=== PATIENT | female | born 1945 | race Two or more races ===

== ENCOUNTER 2017-08-20 18:07 | Emergency (ER) | payer MEDICARE ==
[2017-08-20] MEDS ORDERED: NACL 0.9% 500 ML 500 ML IV ONE (18:30)
[2017-08-20 19:12] LABS: Bilirubin,Urine NEG (Negative); Blood,Urine NEG (Negative); Color,Urine Straw (Yellow); Mucus,Urine FEW /HPF; Protein,Urine <15 mg/dL mg/dL (Negative); Urobilinogen,Urine < 2.0 mg/dL (<2.0)
[2017-08-20 19:23] LABS: Basophils % (Auto) 0.3 % (0.0-1.8); Eosinophils # (Auto) 0.1 K/mm3 (0.0-0.4); Eosinophils % (Auto) 0.8 % (0.0-4.3); Hematocrit 37.4 % (30.3-42.9); Hemoglobin 12.8 gm/dl (10.1-14.3); Lymphocytes # (Auto) 1.9 K/mm3 (1.2-5.4); Mean Corpuscular HGB Conc 34 % (30-34); Mean Corpuscular Hemoglobin 31 pg (28-32); Mean Corpuscular Volume 90 fl (79-97); Monocytes % (Auto) 9.8 % (0.0-7.3); Platelet Count 257 K/mm3 (140-440); Red Blood Count 4.14 M/mm3 (3.65-5.03); Red Cell Distribution Width 12.3 % (13.2-15.2)
[2017-08-20 19:38] LABS: INR 0.86 (0.87-1.13)
[2017-08-20 19:59] LABS: Alanine Aminotransferase 66 units/L (7-56); Albumin 4.1 g/dL (3.9-5); BUN/Creatinine Ratio 29; Blood Urea Nitrogen 20 mg/dL (7-17); Calcium 9.3 mg/dL (8.4-10.2); Hemolysis Index 1
--- NOTE | 2017-08-20 20:08 | XRay Report ---
FINAL REPORT EXAM: XR CHEST 1V AP HISTORY: possible Sepsis TECHNIQUE: Single, portable chest x-ray. PRIORS: None. FINDINGS: Cardiac and mediastinal silhouette within normal limits. Rounded opacity in the midline retrocardiac space may represent moderate hiatal hernia. Lungs are normally expanded, without significant vascular congestion. Probable mild bibasilar atelectasis versus scarring. No focal consolidation or apparent pneumothorax. Bony thorax grossly unremarkable. IMPRESSION: 1. Possible hiatal hernia, but nonspecific. Followup may be warranted. 2. No acute consolidation.
[2017-08-20] MEDS ORDERED: NACL 0.9% 1000 ML 1,000 ML IV ONE (20:34)
[2017-08-20] MEDS ORDERED: TORADOL IV ONE (20:34)
[2017-08-20] MEDS ORDERED: ZITHROMAX 500 MG in NACL 0.9% 250ML 250 ML IV ONE (20:35)
--- NOTE | 2017-08-20 22:25 | Emergency Department Report ---
ED Fever HPI - General Chief Complaint: Fever Stated Complaint: FLU LIKE SYMPTOMS Time Seen by Provider: 08/20/17 20:30 - History of Present Illness Initial Comments: Patient is a 72-year-old female who is complaining of one month of cough congestion sore throat. Patient states that it hurts to swallow she's had some decreased appetite secondary to sore throat. Patient also has a cough is nonproductive. Her granddaughter states that she had a fever earlier today. Patient denies any nausea vomiting headache neck stiffness abdominal pain diarrhea at this time. ED Review of Systems ROS: Stated complaint: FLU LIKE SYMPTOMS Other details as noted in HPI Comment: All other systems reviewed and negative ED Past Medical Hx - Past Medical History Hx Hypertension: Yes Additional medical history: HIGH CHOLESTEROL - Social History Smoking Status: Never Smoker Substance Use Type: None - Medications Home Medications: Home Medications Medication Instructions Recorded Confirmed Last Taken Type Azithromycin [Zithromax Z-MARTÍN] 250 mg PO DAILY #6 tablet 08/20/17 Unknown Rx HYDROcodone/APAP 5-325 [[place] 1 each PO Q4HR PRN #12 tablet 08/20/17 Unknown Rx 5/325] predniSONE [Deltasone] 10 mg PO QDAY #5 tab 08/20/17 Unknown Rx ED Physical Exam - General Limitations: No Limitations General appearance: alert, in no apparent distress - Head Head exam: Present: atraumatic, normocephalic - Eye Eye exam: Present: normal appearance - ENT ENT exam: Present: mucous membranes moist. Absent: normal orophraynx (mild diffuse bilateral tonsillar erythema) - Neck Neck exam: Present: normal inspection - Respiratory Respiratory exam: Present: normal lung sounds bilaterally. Absent: respiratory distress - Cardiovascular Cardiovascular Exam: Present: regular rate, normal rhythm. Absent: systolic murmur, diastolic murmur, rubs, gallop - GI/Abdominal GI/Abdominal exam: Present: soft, normal bowel sounds - Extremities Exam Extremities exam: Present: normal inspection - Back Exam Back exam: Present: normal inspection - Neurological Exam Neurological exam: Present: alert, oriented X3 - Psychiatric Psychiatric exam: Present: normal affect, normal mood - Skin Skin exam: Present: warm, dry, intact, normal color. Absent: rash ED Course Vital Signs 08/20/17 08/20/17 08/20/17 18:24 20:45 20:58 Temperature 99.7 F H 99.4 F Pulse Rate 121 H 105 H Respiratory 20 19 20 Rate Blood Pressure 160/94 Blood Pressure 155/91 [Left] O2 Sat by Pulse 98 96 96 Oximetry ED Medical Decision Making - Lab Data Result diagrams: 08/20/17 19:07 08/20/17 19:07 - EKG Data -: EKG Interpreted by Me - EKG Data Interpretation: other (EKG shows sinus tachycardia rate of 111 normal axis normal intervals no ST segment elevation or depression. Interpretation is 645) - Radiology Data Radiology results: report reviewed (chest x-ray is within normal limits) - Medical Decision Making Patient symptoms most likely started out as viral however with the length of her patient's illness and will place the patient also antibiotics. Patient is not meeting sepsis criteria per labs. Patient is slightly prerenal secondary to decreased by mouth intake. Patient was given IV fluids and the patient be discharged home. Patient is not Upper Sorbian speaking her history of physical as interpreted by her granddaughter who is fluent in Upper Sorbian. Critical care attestation.: If time is entered above; I have spent that time in minutes in the direct care of this critically ill patient, excluding procedure time. ED Disposition Clinical Impression: Dehydration Pharyngitis Qualifiers: Pharyngitis/tonsillitis etiology: unspecified etiology Qualified Code(s): J02.9 - Acute pharyngitis, unspecified Disposition: DC-01 TO HOME OR SELFCARE Is pt being admited?: No Does the pt Need Aspirin: No Condition: Stable Instructions: Pharyngitis (ED) Referrals: PRIMARY CAREMD [Primary Care Provider] - 3-5 Days
[2017-08-20 22:34] VITALS: BP 126/75
== END 2017-08-20 22:43 | disposition home or self-care (01) ==
LOC: ED 18:07
DX: E86.0 Dehydration (principal); J02.9 Acute pharyngitis, unspecified; E78.00 Pure hypercholesterolemia, unspecified
CPT/HCPCS: 36415; 71045; 80053; 81001; 82140; 82805; 85025; 85610; 87040; 87086; 93005; 93010; 96365; 96375; 99284; J0456; J1885; J7030; J7050

== ENCOUNTER 2017-12-10 15:46 | Inpatient (IN) | payer MEDICARE ==
[2017-12-10 17:24] LABS: Basophils % (Auto) 0.3 % (0.0-1.8); Eosinophils # (Auto) 0.1 K/mm3 (0.0-0.4); Hematocrit 37.9 % (30.3-42.9); Hemoglobin 13.2 gm/dl (10.1-14.3); Lymphocytes # (Auto) 1.8 K/mm3 (1.2-5.4); Lymphocytes % (Auto) 33.6 % (13.4-35.0); Mean Corpuscular HGB Conc 35 % (30-34); Mean Corpuscular Hemoglobin 31 pg (28-32); Mean Corpuscular Volume 89 fl (79-97); Monocytes # (Auto) 0.3 K/mm3 (0.0-0.8); Platelet Count 247 K/mm3 (140-440); Red Blood Count 4.24 M/mm3 (3.65-5.03); Red Cell Distribution Width 15.7 % (13.2-15.2)
[2017-12-10 17:42] LABS: BUN/Creatinine Ratio 14; Blood Urea Nitrogen 11 mg/dL (7-17); Calcium 8.9 mg/dL (8.4-10.2); Hemolysis Index 20
--- NOTE | 2017-12-10 19:05 | XRay Report ---
FINAL REPORT EXAM: XR CHEST ROUTINE 2V HISTORY: Shortness of breath TECHNIQUE: Frontal and lateral chest x-ray. PRIORS: 03 December 2017. FINDINGS: Cardiomegaly stable. Lungs are normally expanded, without significant vascular congestion. No focal consolidation, apparent pleural effusion or pneumothorax. Bony thorax grossly unremarkable. IMPRESSION: 1. Stable examination. No acute findings.
[2017-12-10] MEDS ORDERED: MORPHINE IV ONE (20:35)
[2017-12-10] MEDS ORDERED: ZOFRAN IV ONE (20:35)
[2017-12-10] MEDS ORDERED: NACL 0.9% 1000 ML 1,000 ML IV ONE (20:38)
--- NOTE | 2017-12-10 20:47 | Emergency Department Report ---
ED General Adult HPI - General Chief complaint: Chest Pain Stated complaint: HIGH BP Time Seen by Provider: 12/10/17 19:43 Source: patient, family Mode of arrival: Wheelchair Limitations: Language Barrier - History of Present Illness Initial comments: Mrs. Maxwell is 72 yo female with hx of HTN and headache who presents with 10 days of frontal headache, muscle cramps, generalized weakness. She also has nondescript chest pain and dyspnea. She has taken Fioricet for headache without relief. Family members provided Greenlandic interpretation. Zev could not recall use of diuretic although previously documented in EMR. Has had poor appetite since recent discharge from this hospital 5 days ago on 2017. PCP Dr. Yesenia Patterson -: days(s) (10) Location: head, chest Severity scale (0 -10): 10 Quality: dull Consistency: constant Improves with: none Worsens with: none Associated Symptoms: loss of appetite, malaise - Related Data Previous Rx's Medication Instructions Recorded Last Taken Type Aspirin EC [Aspirin Enteric Coated 81 mg PO QDAY #30 tablet 12/05/17 Unknown Rx TAB] Butalb/Acetamin/Caff 50-325-40 1 tab PO Q4H PRN #10 tablet 12/05/17 Unknown Rx [Fioricet] Carvedilol [Coreg] 6.25 mg PO BID #60 tablet 12/05/17 Unknown Rx Zolpidem [Ambien] 5 mg PO QHS PRN #10 tablet 12/05/17 Unknown Rx amLODIPine [Norvasc] 10 mg PO QDAY #30 tablet 12/05/17 Unknown Rx Allergies Allergy/AdvReac Type Severity Reaction Status Date / Time No Known Allergies Allergy Verified 08/20/17 20:32 ED Review of Systems ROS: Stated complaint: HIGH BP Other details as noted in HPI Comment: All other systems reviewed and negative Constitutional: malaise Cardiovascular: chest pain Gastrointestinal: nausea. denies: abdominal pain ED Past Medical Hx - Past Medical History Previous Medical History?: Yes Hx Hypertension: Yes Hx Headaches / Migraines: Yes Hx Kidney Stones: Yes Additional medical history: HIGH CHOLESTEROL - Social History Smoking Status: Never Smoker Substance Use Type: None - Medications Home Medications: Home Medications Medication Instructions Recorded Confirmed Last Taken Type Aspirin EC [Aspirin Enteric Coated 81 mg PO QDAY #30 tablet 12/05/17 Unknown Rx TAB] Butalb/Acetamin/Caff 50-325-40 1 tab PO Q4H PRN #10 tablet 12/05/17 Unknown Rx [Fioricet] Carvedilol [Coreg] 6.25 mg PO BID #60 tablet 12/05/17 Unknown Rx Zolpidem [Ambien] 5 mg PO QHS PRN #10 tablet 12/05/17 Unknown Rx amLODIPine [Norvasc] 10 mg PO QDAY #30 tablet 12/05/17 Unknown Rx ED Physical Exam - General Limitations: Language Barrier General appearance: alert, in no apparent distress, other (appears in pain) - Head Head exam: Present: atraumatic, normocephalic - Eye Eye exam: Present: normal appearance, PERRL - ENT ENT exam: Present: mucous membranes dry - Neck Neck exam: Present: normal inspection. Absent: tenderness, meningismus - Respiratory Respiratory exam: Present: normal lung sounds bilaterally. Absent: respiratory distress, wheezes, rales, rhonchi - Cardiovascular Cardiovascular Exam: Present: regular rate, normal rhythm, normal heart sounds. Absent: bradycardia, tachycardia, systolic murmur, diastolic murmur, rubs, gallop - GI/Abdominal GI/Abdominal exam: Present: soft, normal bowel sounds. Absent: distended, guarding, rebound - Extremities Exam Extremities exam: Present: normal inspection - Back Exam Back exam: Present: normal inspection - Neurological Exam Neurological exam: Present: alert, oriented X3, CN II-XII intact. Absent: motor sensory deficit - Psychiatric Psychiatric exam: Present: normal affect, normal mood - Skin Skin exam: Present: warm, dry, intact, normal color. Absent: rash ED Course Vital Signs 12/10/17 12/10/17 12/10/17 16:50 18:33 18:45 Temperature 97.4 F L Pulse Rate 66 68 64 Respiratory 17 15 12 Rate Blood Pressure 187/95 O2 Sat by Pulse 100 98 96 Oximetry 12/10/17 12/10/17 12/10/17 19:01 19:15 19:31 Temperature Pulse Rate 66 68 68 Respiratory 13 12 11 L Rate Blood Pressure O2 Sat by Pulse 98 99 99 Oximetry 12/10/17 12/10/17 12/10/17 19:45 20:01 20:15 Temperature Pulse Rate 73 74 75 Respiratory 14 15 12 Rate Blood Pressure O2 Sat by Pulse 99 99 98 Oximetry 12/10/17 12/10/17 12/10/17 20:31 20:45 21:00 Temperature Pulse Rate 74 71 Respiratory 13 13 Rate Blood Pressure 216/116 O2 Sat by Pulse 99 99 97 Oximetry 12/10/17 21:12 Temperature Pulse Rate 68 Respiratory Rate Blood Pressure 216/116 O2 Sat by Pulse Oximetry ED Medical Decision Making - Lab Data Result diagrams: 12/10/17 17:06 12/10/17 17:06 - EKG Data When compared to previous EKG there are: no significant change Interpretation: no acute changes 12/10/17 20:47 Time obtained 1700 reate 60 bpm nl axis nl intervals no ST elevation 12/10/17 21:36 Second EKG 2125 NSR rate 70 bpm nl axis prolonged QT no stelevation - Medical Decision Making 1. hyponatremia hypovolemic, due to HCTZ use according to previous EMR, patient does not have HCTZ with meds on her person, IVF NS initated in ED, hyponatremia would explain headache, malaise and muscle cramps 2. Chest pain, dyspnea will need cardiac evaluation unclear etiology PE not likely without tachycardia, Admitted to hospitalist service Critical care attestation.: If time is entered above; I have spent that time in minutes in the direct care of this critically ill patient, excluding procedure time. ED Disposition Clinical Impression: Acute hyponatremia, Headache, SOB (shortness of breath), Myalgia, Chest pain Disposition: OP ADMIT IP TO THIS HOSP Is pt being admited?: Yes Does the pt Need Aspirin: No Condition: Stable Instructions: Chest Pain (ED) Referrals: PRIMARY CARE, [Primary Care Provider] - 3-5 Days
[2017-12-10] MEDS ORDERED: APRESOLINE IV ONE (20:54)
[2017-12-10] MEDS ORDERED: ZOFRAN IV PRN (22:08)
[2017-12-10] MEDS ORDERED: TYLENOL PO PRN (22:08)
[2017-12-10] MEDS ORDERED: PERCOCET 5/325 PO PRN (22:08)
[2017-12-10] MEDS ORDERED: SODIUM CHLORIDE FLUSH SYRINGE 10 ML IV PRN (22:08)
--- NOTE | 2017-12-10 22:10 | History and Physical Report ---
History of Present Illness Date of examination: 12/10/17 History of present illness: 72-year-old female with history of hypertension, migraines, emergency room with complaints of chest pain located in the epigastric area. The family is at bedside translating. She is unable to describe the chest pain, intermittent, unclear along and last for, no radiation. Family at bedside stated that the patient is very weak, achy, nauseous and has a headache. Review of system is difficult to obtain. On the last admission the patient was on a diuretic. Daughter at bedside check all the medicine from the back and there was no diuretic and the patient is taking currently PAST MEDICAL HISTORY: hypertension, migraines PAST SURGICAL HISTORY: None SOCIAL HISTORY: No alcohol, no drugs, tobacco FAMILY HISTORY: Hypertension Medications and Allergies Allergies Allergy/AdvReac Type Severity Reaction Status Date / Time No Known Allergies Allergy Verified 08/20/17 20:32 Home Medications Medication Instructions Recorded Confirmed Last Taken Type Aspirin EC [Aspirin Enteric Coated 81 mg PO QDAY #30 tablet 12/05/17 12/11/17 Unknown Rx TAB] Butalb/Acetamin/Caff 50-325-40 1 tab PO Q4H PRN #10 tablet 12/05/17 12/11/17 09:00 Rx [Fioricet] Carvedilol [Coreg] 6.25 mg PO BID #60 tablet 12/05/17 12/11/17 12/09/17 21:00 Rx Zolpidem [Ambien] 5 mg PO QHS PRN #10 tablet 12/05/17 12/11/17 12/09/17 21:00 Rx amLODIPine [Norvasc] 10 mg PO QDAY #30 tablet 12/05/17 12/11/17 12/09/17 09:00 Rx Venlafaxine Xr 37.5 mg PO DAILY 12/11/17 12/11/17 12/09/17 History Active Meds: Active Medications Acetaminophen (Tylenol) 650 mg PO Q4H PRN PRN Reason: Pain MILD(1-3)/Fever >100.5/CORONADO Enoxaparin Sodium (Lovenox) 30 mg SUB-Q QDAY ZURI Sodium Chloride (Nacl 0.9% 1000 Ml) 1,000 mls @ 250 mls/hr IV BOLUS ONE Stop: 12/11/17 00:37 Last Admin: 12/10/17 21:12 Dose: 250 mls/hr Sodium Chloride (Nacl 0.9% 1000 Ml) 1,000 mls @ 75 mls/hr IV DIRECT ZURI Ondansetron HCl (Zofran) 4 mg IV Q4H PRN PRN Reason: Nausea And Vomiting Oxycodone/Acetaminophen (Percocet 5/325) 1 tab PO Q6H PRN PRN Reason: Pain, Moderate (4-6) Sodium Chloride (Sodium Chloride Flush Syringe 10 Ml) 10 ml IV BID ZURI Sodium Chloride (Sodium Chloride Flush Syringe 10 Ml) 10 ml IV PRN PRN PRN Reason: LINE FLUSH Exam - Physical Exam Narrative exam: Gen. appearance: Patient lying in bed, no apparent distress HEENT: Normocephalic, atraumatic, pupils equally round and reactive to light, extraocular movement intact, and no sclericterus,. No JVD or thyromegaly or nodule,neck supple, no carotid bruit ,mucous membranes moist, no exudate or erythema Heart: S1, S2, regular rate and rhythm Lungs: Clear bilaterally, breathing comfortable Abdomen: Positive bowel sounds, non-tender, nondistended, no organomegaly Extremity:no edema cyanosis, clubbing Skin: no rash, dry, warm Neuro: Difficult to assess - Constitutional Vitals: Temp Pulse Resp BP Pulse Ox 97.4 F L 68 13 162/87 97 12/10/17 16:50 12/10/17 21:12 12/10/17 20:45 12/10/17 21:45 12/10/17 21:45 Results - Labs CBC & Chem 7: 12/10/17 17:06 12/10/17 22:48 Labs: Abnormal lab results 12/10/17 12/10/17 12/10/17 Range/Units 17:06 17:06 19:04 MCHC 35 H (30-34) % RDW 15.7 H (13.2-15.2) % Sodium 115 L* (137-145) mmol/L Chloride 79.6 L (98-107) mmol/L Glucose 137 H (65-100) mg/dL Total Creatine Kinase 1195 H (30-135) units/L - Imaging and Cardiology EKG: image reviewed Chest x-ray: report reviewed Assessment and Plan Assessment Hyponatremia likely secondary to diuretic Chest pain Headache UTI Hypertension, uncontrolled Plan Admit to medicine Start IV fluid, monitor sodium, check urine electrolytes, consult renal Check cardiac enzymes, stress test check CT head, start IV rocephin Hydralazine as needed for blood pressure control DVT prophalaxis
[2017-12-10 22:58] LABS: Bacteria,Urine 1+ /HPF (Negative); Bilirubin,Urine NEG (Negative); Blood,Urine NEG (Negative); Color,Urine Straw (Yellow); Hyaline Casts,Urine 1 /LPF; Protein,Urine <15 mg/dL mg/dL (Negative); Urobilinogen,Urine < 2.0 mg/dL (<2.0)
[2017-12-10] MEDS ORDERED: APRESOLINE IV PRN (23:22)
--- NOTE | 2017-12-10 23:27 | Cat Scan Report ---
FINAL REPORT PROCEDURE: CT HEAD/BRAIN WO CON TECHNIQUE: Computerized tomography of the head was performed without contrast material. HISTORY: CORONADO COMPARISON: 12/03/2017 FINDINGS: Skull and scalp: Normal. Paranasal sinuses: Normal. Ventricles and subarachnoid spaces: Normal. Cerebrum: There is no evidence of acute intracranial hemorrhage, hematoma infarction. Low density in the left frontal periventricular region most consistent with small vessel ischemic change. There has been no change since prior exam.. Cerebellum and brainstem: No evidence of hemorrhage, acute infarction or mass. Vasculature: Normal. Comments: None. IMPRESSION: There is no evidence of an acute intracranial process.
[2017-12-10 23:29] LABS: BUN/Creatinine Ratio 13; Blood Urea Nitrogen 9 mg/dL (7-17); Calcium 7.9 mg/dL (8.4-10.2); Hemolysis Index 9
[2017-12-11] MEDS: ROCEPHIN/NS 1 GM/50 ML 1 GM/50 ML BAG IV SCH (00:31)
[2017-12-11] MEDS: NACL 0.9% 1000 ML 1,000 ML IV SCH (00:31)
[2017-12-11 02:21] LABS: BUN/Creatinine Ratio 15; Blood Urea Nitrogen 9 mg/dL (7-17); Calcium 7.9 mg/dL (8.4-10.2); Hemolysis Index 104
[2017-12-11 05:46] LABS: Creatinine,Urine 29.3 mg/dL (0.1-20.0)
[2017-12-11 06:27] LABS: Basophils % (Auto) 0.3 % (0.0-1.8); Eosinophils % (Auto) 0.4 % (0.0-4.3); Hematocrit 35.9 % (30.3-42.9); Hemoglobin 12.6 gm/dl (10.1-14.3); Lymphocytes % (Auto) 32.9 % (13.4-35.0); Mean Corpuscular HGB Conc 35 % (30-34); Mean Corpuscular Hemoglobin 31 pg (28-32); Mean Corpuscular Volume 89 fl (79-97); Monocytes # (Auto) 0.4 K/mm3 (0.0-0.8); Monocytes % (Auto) 6.3 % (0.0-7.3); Platelet Count 228 K/mm3 (140-440); Red Blood Count 4.04 M/mm3 (3.65-5.03); Red Cell Distribution Width 15.6 % (13.2-15.2)
[2017-12-11 06:46] LABS: BUN/Creatinine Ratio 11; Blood Urea Nitrogen 9 mg/dL (7-17); Calcium 8.1 mg/dL (8.4-10.2); Hemolysis Index 8
[2017-12-11] MEDS ORDERED: LEXISCAN IV ONE ×2 (09:19)
[2017-12-11] MEDS ORDERED: LOVENOX SUB-Q SCH (10:00)
[2017-12-11] MEDS: SODIUM CHLORIDE FLUSH SYRINGE 10 ML IV SCH ×2 (10:48→21:34)
[2017-12-11 10:52] LABS: BUN/Creatinine Ratio 10; Blood Urea Nitrogen 8 mg/dL (7-17); Hemolysis Index 7
--- NOTE | 2017-12-11 13:13 | Consultation ---
History of Present Illness - Reason for Consult Consult date: 12/11/17 hyponatremia - History of Present Illness The patient is a 72 YO female with history significant for Poorly controlled Hypertension and Migraine who presented to the emergency room with complaints of pain in the epigastric area. Her grand daughter at the bedside helped on translating. She is very vague about the pain. She ahs been nauseated with decreased PO intake for the past 3 days. eview of system is difficult to obtain. She was admitted last week for uncontrolled HTN and discharged home on 12/05/2017. She is not taking her meds as she feels its too strong. She is not sure if she taking any diuretic. Her Sodium level was 115 on admission. Past History Past Medical History: hypertension, migraines Medications and Allergies Allergies Allergy/AdvReac Type Severity Reaction Status Date / Time No Known Allergies Allergy Verified 08/20/17 20:32 Home Medications Medication Instructions Recorded Confirmed Last Taken Type Aspirin EC [Aspirin Enteric Coated 81 mg PO QDAY #30 tablet 12/05/17 12/11/17 Unknown Rx TAB] Butalb/Acetamin/Caff 50-325-40 1 tab PO Q4H PRN #10 tablet 12/05/17 12/11/17 09:00 Rx [Fioricet] Carvedilol [Coreg] 6.25 mg PO BID #60 tablet 12/05/17 12/11/17 12/09/17 21:00 Rx Zolpidem [Ambien] 5 mg PO QHS PRN #10 tablet 12/05/17 12/11/17 12/09/17 21:00 Rx amLODIPine [Norvasc] 10 mg PO QDAY #30 tablet 12/05/17 12/11/17 12/09/17 09:00 Rx Venlafaxine Xr 37.5 mg PO DAILY 12/11/17 12/11/17 12/09/17 History Active Meds: Active Medications Acetaminophen (Tylenol) 650 mg PO Q4H PRN PRN Reason: Pain MILD(1-3)/Fever >100.5/CORONADO Enoxaparin Sodium (Lovenox) 40 mg SUB-Q QDAY@1000 ZURI Hydralazine HCl (Apresoline) 5 mg IV Q6H PRN PRN Reason: Hypertension Sodium Chloride (Nacl 0.9% 1000 Ml) 1,000 mls @ 100 mls/hr IV DIRECT ZURI Last Admin: 12/11/17 00:31 Dose: 75 mls/hr Ceftriaxone Sodium (Rocephin/Ns 1 Gm/50 Ml) 1 gm in 50 mls @ 100 mls/hr IV Q24HR ZURI; Protocol Last Admin: 12/11/17 00:31 Dose: 100 mls/hr Ondansetron HCl (Zofran) 4 mg IV Q4H PRN PRN Reason: Nausea And Vomiting Oxycodone/Acetaminophen (Percocet 5/325) 1 tab PO Q6H PRN PRN Reason: Pain, Moderate (4-6) Last Admin: 12/11/17 01:49 Dose: 1 tab Sodium Chloride (Sodium Chloride Flush Syringe 10 Ml) 10 ml IV BID ZURI Sodium Chloride (Sodium Chloride Flush Syringe 10 Ml) 10 ml IV PRN PRN PRN Reason: LINE FLUSH Review of Systems Constitutional: no weight loss, no weight gain, no fever, no chills, no weakness Breasts: deferred Cardiovascular: chest pain, high blood pressure, no orthopnea, no palpitations, no edema, no syncope, no lightheadedness, no shortness of breath, no leg edema Respiratory: no cough, no shortness of breath, no dyspnea on exertion Gastrointestinal: nausea, no abdominal pain, no vomiting, no diarrhea, no melena , no jaundice Genitourinary Female: no hematuria Integumentary: no rash, no wounds, no jaundice Exam - Vital Signs Vital signs: Vital Signs Temp Pulse Resp BP Pulse Ox 97.4 F L 66 17 187/95 100 12/10/17 16:50 12/10/17 16:50 12/10/17 16:50 12/10/17 16:50 12/10/17 16:50 - General Appearance General appearance: well-developed, well-nourished, appears stated age, other ( not in distress) EENT: ATNC, PERRL, mucous membranes dry, hearing intact, vision intact Neck: Present: neck supple, trachea midline Respiratory: Clear to Ascultation Heart: regular, S1S2, no murmurs Gastrointestinal: Present: normoactive bowel sounds. Absent: tenderness Integumentary: no rash, warm and dry Neurologic: no focal deficit, no asterixis Musculoskeletal: Present: other (no edema) Results - Lab Results 12/11/17 05:29 12/11/17 19:51 Most recent lab results Calcium 8.0 mg/dL (8.4-10.2) L 12/11/17 10:25 Urine Creatinine 29.3 mg/dL (0.1-20.0) H 12/11/17 05:00 Urine Sodium 108 mmol/L 12/11/17 05:00 Assessment and Plan 1. 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 Add Salt tablets. Continue IV fluids to treat any volume depletion. Monitor Sodium level. 2. Uncontrolled HTN: BP is better now. 3. Medical non-compliance.
[2017-12-11 15:50] LABS: BUN/Creatinine Ratio 12; Blood Urea Nitrogen 7 mg/dL (7-17); Hemolysis Index 171
[2017-12-11] MEDS: SODIUM CHLORIDE PO SCH ×2 (16:42→21:33)
[2017-12-11] MEDS: LOVENOX SUB-Q SCH (16:43)
--- NOTE | 2017-12-11 17:06 | Progress Note ---
Assessment and Plan Hyponatremia likely secondary to poor oral intake - cont iv fluid, renal consulted Chest pain, stess test ordered, negative trop Headache, chronic, CT head unremarkable UTI, on rocephin Hypertension, uncontrolled, resumed home meds Radiological data: Ct head: There is no evidence of an acute intracranial process. CXR: 1. Stable examination. No acute findings. Subjective Date of service: 12/11/17 Interval history: Pt seen and examined states she was not taking salt at all as her BP was running high discussed plan of care at bedside Objective - Constitutional Vitals: Vital Signs - 12hr 12/11/17 05:27 Temperature 97.8 F Pulse Rate 68 Respiratory 19 Rate Blood Pressure 124/71 [Right] O2 Sat by Pulse 94 Oximetry - Labs CBC & Chem 7: 12/11/17 05:29 12/12/17 12:47 Labs: Abnormal lab results 12/10/17 12/10/17 12/10/17 Range/Units 17:06 17:06 19:04 MCHC 35 H (30-34) % RDW 15.7 H (13.2-15.2) % Sodium 115 L* (137-145) mmol/L Potassium (3.6-5.0) mmol/L Chloride 79.6 L (98-107) mmol/L Carbon Dioxide (22-30) mmol/L Creatinine (0.7-1.2) mg/dL Glucose 137 H (65-100) mg/dL Calcium (8.4-10.2) mg/dL Total Creatine Kinase 1195 H (30-135) units/L Urine WBC (Auto) (0.0-6.0) /HPF Urine Creatinine (0.1-20.0) mg/dL 12/10/17 12/10/17 12/11/17 Range/Units 22:14 22:48 01:28 MCHC (30-34) % RDW (13.2-15.2) % Sodium 116 L* 116 L* (137-145) mmol/L Potassium 3.2 L 3.4 L (3.6-5.0) mmol/L Chloride 80.4 L 80.2 L (98-107) mmol/L Carbon Dioxide 18 L 19 L (22-30) mmol/L Creatinine 0.6 L (0.7-1.2) mg/dL Glucose 154 H 132 H (65-100) mg/dL Calcium 7.9 L 7.9 L (8.4-10.2) mg/dL Total Creatine Kinase (30-135) units/L Urine WBC (Auto) 28.0 H (0.0-6.0) /HPF Urine Creatinine (0.1-20.0) mg/dL 12/11/17 12/11/17 12/11/17 Range/Units 05:00 05:29 05:29 MCHC 35 H (30-34) % RDW 15.6 H (13.2-15.2) % Sodium 117 L* (137-145) mmol/L Potassium (3.6-5.0) mmol/L Chloride 82.4 L (98-107) mmol/L Carbon Dioxide (22-30) mmol/L Creatinine (0.7-1.2) mg/dL Glucose 141 H (65-100) mg/dL Calcium 8.1 L (8.4-10.2) mg/dL Total Creatine Kinase (30-135) units/L Urine WBC (Auto) (0.0-6.0) /HPF Urine Creatinine 29.3 H (0.1-20.0) mg/dL 12/11/17 12/11/17 Range/Units 10:25 15:02 MCHC (30-34) % RDW (13.2-15.2) % Sodium 115 L* 113 L* (137-145) mmol/L Potassium (3.6-5.0) mmol/L Chloride 79.1 L 80.3 L (98-107) mmol/L Carbon Dioxide 20 L (22-30) mmol/L Creatinine 0.6 L (0.7-1.2) mg/dL Glucose 142 H 191 H (65-100) mg/dL Calcium 8.0 L 8.0 L (8.4-10.2) mg/dL Total Creatine Kinase (30-135) units/L Urine WBC (Auto) (0.0-6.0) /HPF Urine Creatinine (0.1-20.0) mg/dL
[2017-12-11 20:54] LABS: BUN/Creatinine Ratio 10; Blood Urea Nitrogen 7 mg/dL (7-17); Calcium 7.9 mg/dL (8.4-10.2); Hemolysis Index 18
[2017-12-11] MEDS ORDERED: SODIUM BICARBONATE IV ONE (20:54)
[2017-12-11] MEDS ORDERED: SODIUM BICARBONATE IV NR (21:00)
[2017-12-11 23:23] LABS: BUN/Creatinine Ratio 10; Blood Urea Nitrogen 7 mg/dL (7-17); Calcium 7.7 mg/dL (8.4-10.2); Hemolysis Index 47
[2017-12-11] MEDS ORDERED: K-DUR PO NR (23:48)
[2017-12-12] MEDS: ROCEPHIN/NS 1 GM/50 ML 1 GM/50 ML BAG IV SCH ×3 (00:06→22:56)
[2017-12-12] MEDS: NACL 0.9% 1000 ML 1,000 ML IV SCH (00:13)
[2017-12-12 07:31] LABS: Alanine Aminotransferase 22 units/L (7-56); Albumin 3.8 g/dL (3.9-5); BUN/Creatinine Ratio 8; Blood Urea Nitrogen 6 mg/dL (7-17); Calcium 7.9 mg/dL (8.4-10.2); Hemolysis Index 4; Uric Acid 2.2 mg/dL (3.5-7.6)
[2017-12-12] MEDS ORDERED: LEXISCAN IV ONE ×2 (08:28→08:39)
[2017-12-12] MEDS: LOVENOX SUB-Q SCH (09:21)
[2017-12-12] MEDS: SODIUM CHLORIDE PO SCH (09:21)
[2017-12-12] MEDS: SODIUM CHLORIDE FLUSH SYRINGE 10 ML IV SCH ×2 (09:23→21:32)
--- NOTE | 2017-12-12 09:31 | Progress Note ---
Assessment and Plan 1. 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 Sodium level is better today, increase by 11 meq over 24 hour. Change IV fluids to D5W. Monitor Sodium level. 2. Uncontrolled HTN: BP is better now. 3. Medical non-compliance. Subjective Date of service: 12/12/17 Interval history: Patient is feeling better today. Her daughter is at the bedside translating. Objective - Vital Signs Vital signs: Vital Signs - 12hr 12/11/17 12/12/17 12/12/17 23:54 05:19 08:03 Temperature 98.2 F 98.3 F Pulse Rate 78 69 Respiratory 18 18 Rate Blood Pressure 162/74 137/75 O2 Sat by Pulse 97 96 97 Oximetry - General Appearance General appearance: well-developed, well-nourished, appears stated age, other ( not in distress) EENT: ATNC, PERRL, mucous membranes moist, hearing intact, vision intact Neck: supple Respiratory: Present: Clear to Ascultation Cardiology: regular, S1S2, no murmurs Gastrointestinal: normoactive bowel sounds, no tenderness Integumentary: no rash, warm and dry Neurologic: no focal deficit, no asterixis Musculoskeletal: other (no edema) - Lab 12/11/17 05:29 12/12/17 12:47 Most recent lab results Calcium 7.9 mg/dL (8.4-10.2) L 12/12/17 05:37 Urine Creatinine 29.3 mg/dL (0.1-20.0) H 12/11/17 05:00 Urine Sodium 108 mmol/L 12/11/17 05:00
[2017-12-12] MEDS ORDERED: KCL 40 MEQ in D5W 1,000 ML IV SCH (09:45)
[2017-12-12] MEDS ORDERED: NACL 0.45% 1000 ML 1,000 ML IV SCH (10:00)
[2017-12-12 13:44] LABS: Calcium 8.5 mg/dL (8.4-10.2)
[2017-12-12] MEDS ORDERED: DULCOLAX PO PRN (16:38)
--- NOTE | 2017-12-12 17:29 | Progress Note ---
Assessment and Plan Hyponatremia likely secondary to poor oral intake - cont iv fluid, renal consulted - Na level improved with iv fluid Chest pain, stess test ordered, negative trop hypokalemia, replaced Headache, chronic, CT head unremarkable UTI, on rocephin Hypertension, uncontrolled, resumed home meds Radiological data: Ct head: There is no evidence of an acute intracranial process. CXR: 1. Stable examination. No acute findings. Subjective Date of service: 12/12/17 Interval history: Pt seen and examined Stated she was not taking salt at all as her BP was running high discussed plan of care at bedside with family Patient feels lot better Objective - Constitutional Vitals: Vital Signs - 12hr 12/12/17 12/12/17 12/12/17 07:00 08:03 08:46 Temperature 98.0 F Pulse Rate 76 83 Respiratory 16 Rate Blood Pressure 138/65 O2 Sat by Pulse 97 95 Oximetry 12/12/17 12/12/17 10:00 12:36 Temperature 98.2 F Pulse Rate 109 H Respiratory 18 16 Rate Blood Pressure 171/96 O2 Sat by Pulse 97 97 Oximetry General appearance: Present: no acute distress - EENT Eyes: PERRL, EOM intact ENT: hearing intact, clear oral mucosa Ears: bilateral: normal - Neck Neck: supple, normal ROM - Respiratory Respiratory effort: normal Respiratory: bilateral: CTA - Cardiovascular Rhythm: regular Heart Sounds: Present: S1 & S2. Absent: gallop, rub Extremities: pulses intact, No edema, normal color, Full ROM - Gastrointestinal General gastrointestinal: Present: soft, non-tender, non-distended, normal bowel sounds - Integumentary Integumentary: clear, warm, dry - Musculoskeletal Musculoskeletal: 1, strength equal bilaterally - Neurologic Neurologic: moves all extremities - Psychiatric Psychiatric: memory intact, appropriate mood/affect, intact judgment & insight - Labs CBC & Chem 7: 12/11/17 05:29 12/12/17 17:46 Labs: Abnormal lab results 12/11/17 12/11/17 12/12/17 Range/Units 19:51 22:25 05:37 Sodium 113 L* 118 L* 128 L D (137-145) mmol/L Potassium 3.2 L 3.1 L (3.6-5.0) mmol/L Chloride 78.4 L 81.5 L 93.7 L (98-107) mmol/L Carbon Dioxide 21 L (22-30) mmol/L BUN 6 L (7-17) mg/dL Glucose 156 H 106 H (65-100) mg/dL Uric Acid 2.2 L (3.5-7.6) mg/dL Calcium 7.9 L 7.7 L 7.9 L (8.4-10.2) mg/dL Albumin 3.8 L (3.9-5) g/dL 12/12/17 Range/Units 12:47 Sodium 130 L (137-145) mmol/L Potassium (3.6-5.0) mmol/L Chloride 95.5 L (98-107) mmol/L Carbon Dioxide (22-30) mmol/L BUN (7-17) mg/dL Glucose 149 H (65-100) mg/dL Uric Acid (3.5-7.6) mg/dL Calcium (8.4-10.2) mg/dL Albumin (3.9-5) g/dL
[2017-12-12] MEDS: MIRALAX 3350 PO SCH (17:39)
[2017-12-12 18:56] LABS: BUN/Creatinine Ratio 9; Blood Urea Nitrogen 8 mg/dL (7-17); Calcium 8.8 mg/dL (8.4-10.2); Hemolysis Index 10
[2017-12-12] MEDS: COLACE PO SCH (21:29)
[2017-12-13] MEDS ORDERED: NACL 0.9% 1000 ML 1,000 ML IV SCH (04:00)
[2017-12-13 05:54] LABS: BUN/Creatinine Ratio 9; Blood Urea Nitrogen 7 mg/dL (7-17); Calcium 8.7 mg/dL (8.4-10.2); Hemolysis Index 4
[2017-12-13] MEDS ORDERED: LEXISCAN IV ONE ×2 (08:04→12:00)
[2017-12-13] MEDS ORDERED: FIORICET PO PRN (10:00)
[2017-12-13] MEDS ORDERED: COREG PO SCH (10:00)
[2017-12-13] MEDS: COLACE PO SCH ×2 (10:31→21:51)
[2017-12-13] MEDS: HALFPRIN EC PO SCH (10:32)
[2017-12-13] MEDS: NORVASC PO SCH (10:39)
[2017-12-13] MEDS: LOVENOX SUB-Q SCH (10:40)
[2017-12-13] MEDS: MIRALAX 3350 PO SCH (10:40)
[2017-12-13] MEDS: SODIUM CHLORIDE FLUSH SYRINGE 10 ML IV SCH ×2 (10:44→21:52)
[2017-12-13] MEDS ORDERED: EFFEXOR PO SCH (11:00)
[2017-12-13] MEDS: NON-FORMULARY PO SCH (11:06)
--- NOTE | 2017-12-13 11:13 | Progress Note ---
Assessment and Plan 1. 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 Sodium level has improved appropriately. IV fluids can be stopped. Monitor Sodium level. 2. Uncontrolled HTN: BP is better. Increase Coreg. 3. Medical non-compliance. Subjective Date of service: 12/13/17 Interval history: Patient was seen and examined at the bedside. Objective - Vital Signs Vital signs: Vital Signs - 12hr 12/12/17 12/13/17 12/13/17 23:33 04:58 10:00 Temperature 98.3 F 97.9 F Pulse Rate 85 86 Respiratory 18 18 20 Rate Blood Pressure 154/86 154/76 O2 Sat by Pulse 98 96 98 Oximetry 12/13/17 10:39 Temperature Pulse Rate 106 H Respiratory Rate Blood Pressure 177/92 O2 Sat by Pulse Oximetry - General Appearance General appearance: well-developed, well-nourished, appears stated age, other ( not in distress) EENT: ATNC, PERRL Respiratory: Present: Clear to Ascultation Cardiology: regular, S1S2, no murmurs Gastrointestinal: normoactive bowel sounds, no tenderness Integumentary: no rash, warm and dry Neurologic: no focal deficit, other (able to walk without any difficulty) Musculoskeletal: other (no edema) - Lab 12/11/17 05:29 12/13/17 04:51 Most recent lab results Calcium 8.7 mg/dL (8.4-10.2) 12/13/17 04:51 Phosphorus 1.50 mg/dL (2.5-4.5) L 12/13/17 04:51 Magnesium 2.30 mg/dL (1.7-2.3) 12/13/17 04:51 Urine Creatinine 29.3 mg/dL (0.1-20.0) H 12/11/17 05:00 Urine Sodium 108 mmol/L 12/11/17 05:00
[2017-12-13] MEDS: K-PHOS NEUTRAL PO SCH ×3 (13:04→21:51)
--- NOTE | 2017-12-13 15:01 | Progress Note ---
Assessment and Plan Assessment and plan: Hyponatremia likely secondary to poor oral intake - Na level improving on iv fluid, will cont to monitor - Nephrology following Chest pain, r/o ACS -serial Troponin levels negative -stess test in am Hypokalemia -Improved status post repletion Headache, chronic, -Home fioricet resumed -CT head unremarkable UTI -on iv Rocephin -Urine culture not obtained Hypertension, uncontrolled -home meds resumed, adjust as needed Disposition: For discharge if stress test is negative History Interval history: Patient complained of poor sleep Hospitalist Physical - Constitutional Vitals: Temp Pulse Resp BP Pulse Ox 97.9 F 106 H 20 177/92 98 12/13/17 04:58 12/13/17 10:39 12/13/17 10:00 12/13/17 10:39 12/13/17 10:00 General appearance: Present: no acute distress - EENT Eyes: Present: PERRL, EOM intact ENT: hearing intact, clear oral mucosa - Neck Neck: Present: supple - Respiratory Respiratory effort: normal Respiratory: bilateral: CTA - Cardiovascular Rhythm: regular Heart Sounds: Present: S1 & S2 - Extremities Extremities: No edema - Abdominal General gastrointestinal: soft, non-tender, normal bowel sounds - Neurologic Neurologic: CNII-XII intact Results - Labs CBC & Chem 7: 12/11/17 05:29 12/13/17 04:51 Labs: Laboratory Last Values WBC 6.2 K/mm3 (4.5-11.0) 12/11/17 05:29 RBC 4.04 M/mm3 (3.65-5.03) 12/11/17 05:29 Hgb 12.6 gm/dl (10.1-14.3) 12/11/17 05:29 Hct 35.9 % (30.3-42.9) 12/11/17 05:29 MCV 89 fl (79-97) 12/11/17 05:29 MCH 31 pg (28-32) 12/11/17 05:29 MCHC 35 % (30-34) H 12/11/17 05:29 RDW 15.6 % (13.2-15.2) H 12/11/17 05:29 Plt Count 228 K/mm3 (140-440) 12/11/17 05:29 Lymph % (Auto) 32.9 % (13.4-35.0) 12/11/17 05:29 [place] % (Auto) 6.3 % (0.0-7.3) 12/11/17 05:29 Eos % (Auto) 0.4 % (0.0-4.3) 12/11/17 05:29 Baso % (Auto) 0.3 % (0.0-1.8) 12/11/17 05:29 Lymph # 2.0 K/mm3 (1.2-5.4) 12/11/17 05:29 [place] # 0.4 K/mm3 (0.0-0.8) 12/11/17 05:29 Eos # 0.0 K/mm3 (0.0-0.4) 12/11/17 05:29 Baso # 0.0 K/mm3 (0.0-0.1) 12/11/17 05:29 Seg Neutrophils % 60.1 % (40.0-70.0) 12/11/17 05:29 Seg Neutrophils # 3.8 K/mm3 (1.8-7.7) 12/11/17 05:29 Sodium 136 mmol/L (137-145) L 12/13/17 04:51 Potassium 4.1 mmol/L (3.6-5.0) 12/13/17 04:51 Chloride 100.6 mmol/L (98-107) 12/13/17 04:51 Carbon Dioxide 22 mmol/L (22-30) 12/13/17 04:51 Anion Gap 18 mmol/L 12/13/17 04:51 BUN 7 mg/dL (7-17) 12/13/17 04:51 Creatinine 0.8 mg/dL (0.7-1.2) 12/13/17 04:51 Estimated GFR > 60 ml/min 12/13/17 04:51 BUN/Creatinine Ratio 9 % 12/13/17 04:51 Glucose 106 mg/dL (65-100) H 12/13/17 04:51 Osmolality 266 Mosm/kg 12/12/17 05:37 Uric Acid 2.2 mg/dL (3.5-7.6) L 12/12/17 05:37 Calcium 8.7 mg/dL (8.4-10.2) 12/13/17 04:51 Phosphorus 1.50 mg/dL (2.5-4.5) L 12/13/17 04:51 Magnesium 2.30 mg/dL (1.7-2.3) 12/13/17 04:51 Total Bilirubin 0.40 mg/dL (0.1-1.2) 12/12/17 05:37 AST 40 units/L (5-40) 12/12/17 05:37 ALT 22 units/L (7-56) 12/12/17 05:37 Alkaline Phosphatase 62 units/L (35-129) 12/12/17 05:37 Total Creatine Kinase 1195 units/L (30-135) H 12/10/17 19:04 Troponin T < 0.010 ng/mL (0.00-0.029) 12/10/17 22:48 NT-Pro-B Natriuret Pep 120.1 pg/mL (0-900) 12/10/17 19:04 Total Protein 6.6 g/dL (6.3-8.2) 12/12/17 05:37 Albumin 3.8 g/dL (3.9-5) L 12/12/17 05:37 Albumin/Globulin Ratio 1.4 % 12/12/17 05:37 Urine Color Straw (Yellow) 12/10/17 22:14 Urine Turbidity Clear (Clear) 12/10/17 22:14 Urine pH 7.0 (5.0-7.0) 12/10/17 22:14 Ur Specific [place] 1.008 (1.003-1.030) 12/10/17 22:14 Urine Protein <15 mg/dl mg/dL (Negative) 12/10/17 22:14 Urine Glucose (UA) Neg mg/dL (Negative) 12/10/17 22:14 Urine Ketones Tr mg/dL (Negative) 12/10/17 22:14 Urine Blood Neg (Negative) 12/10/17 22:14 Urine Nitrite Neg (Negative) 12/10/17 22:14 Urine Bilirubin Neg (Negative) 12/10/17 22:14 Urine Urobilinogen < 2.0 mg/dL (<2.0) 12/10/17 22:14 Ur Leukocyte Esterase Mod (Negative) 12/10/17 22:14 Urine WBC (Auto) 28.0 /HPF (0.0-6.0) H 12/10/17 22:14 Urine RBC (Auto) 3.0 /HPF (0.0-6.0) 12/10/17 22:14 Urine Bacteria (Auto) 1+ /HPF (Negative) 12/10/17 22:14 Hyaline Casts 1 /LPF 12/10/17 22:14 Urine Yeast (Budding) Few /HPF 12/10/17 22:14 Urine Osmolality 360 Mosm/kg 12/11/17 13:16 Urine Creatinine 29.3 mg/dL (0.1-20.0) H 12/11/17 05:00 Urine Sodium 108 mmol/L 12/11/17 05:00
[2017-12-13] MEDS ORDERED: APRESOLINE IV PRN (15:03)
[2017-12-13] MEDS: COREG PO SCH (21:50)
[2017-12-13] MEDS ORDERED: AMBIEN PO PRN (22:00)
[2017-12-13] MEDS ORDERED: RESTORIL PO PRN (22:00)
[2017-12-13] MEDS: ROCEPHIN/NS 1 GM/50 ML 1 GM/50 ML BAG IV SCH (22:52)
[2017-12-14 07:48] LABS: BUN/Creatinine Ratio 14; Blood Urea Nitrogen 11 mg/dL (7-17); Calcium 8.9 mg/dL (8.4-10.2); Hemolysis Index 5
--- NOTE | 2017-12-14 08:23 | Progress Note ---
Assessment and Plan 1. 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 Sodium level has improved appropriately. Monitor Sodium level. 2. Uncontrolled HTN: BP is better. Patient was advised to take all the meds as prescribed. 3. Medical non-compliance. F/u with me in 2 weeks. Subjective Date of service: 12/14/17 Interval history: Patient was seen and examined at the bedside. Objective - Vital Signs Vital signs: Vital Signs - 12hr 12/13/17 12/13/17 12/13/17 21:50 22:00 23:52 Temperature 98.4 F Pulse Rate 76 76 69 Respiratory 20 18 Rate Blood Pressure 146/74 123/61 O2 Sat by Pulse 98 96 Oximetry 12/14/17 04:43 Temperature 98.4 F Pulse Rate 74 Respiratory 18 Rate Blood Pressure 143/75 O2 Sat by Pulse 97 Oximetry - General Appearance General appearance: well-developed, well-nourished, appears stated age, other ( daughter at the bedside, not in distress) EENT: ATNC, PERRL, mucous membranes moist, hearing intact, vision intact Neck: supple Respiratory: Present: Clear to Ascultation Cardiology: regular, S1S2, no murmurs Gastrointestinal: normoactive bowel sounds, no tenderness Integumentary: no rash, warm and dry Neurologic: no focal deficit, no asterixis Musculoskeletal: other (no edema) Psychiatric: cooperative - Lab 12/11/17 05:29 12/14/17 06:49 Most recent lab results Calcium 8.9 mg/dL (8.4-10.2) 12/14/17 06:49 Phosphorus 3.20 mg/dL (2.5-4.5) D 12/14/17 06:49 Magnesium 2.30 mg/dL (1.7-2.3) 12/13/17 04:51 Urine Creatinine 29.3 mg/dL (0.1-20.0) H 12/11/17 05:00 Urine Sodium 108 mmol/L 12/11/17 05:00
[2017-12-14] MEDS: COREG PO SCH (10:43)
[2017-12-14] MEDS: MIRALAX 3350 PO SCH (11:00)
[2017-12-14] MEDS: LOVENOX SUB-Q SCH (11:00)
[2017-12-14] MEDS: HALFPRIN EC PO SCH (11:00)
[2017-12-14] MEDS: COLACE PO SCH (11:00)
[2017-12-14] MEDS: NORVASC PO SCH (11:00)
[2017-12-14] MEDS: NON-FORMULARY PO SCH (11:00)
[2017-12-14] MEDS: K-PHOS NEUTRAL PO SCH ×2 (11:00→13:00)
[2017-12-14 13:50] VITALS: BP 146/85
--- NOTE | 2017-12-14 14:07 | Discharge Summary ---
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 Hospitalization Condition: Stable Hospital course: Discharge diagnosis: Hyponatremia likely secondary to poor oral intake - Na level improving on iv fluid, will cont to monitor - Nephrology following Chest pain, ruled out ACS - likely from GERD and uncontrolled BP -serial Troponin levels negative -stess test in am Hypokalemia -Improved status post repletion Headache, chronic, -Home fioricet resumed -CT head unremarkable UTI -on iv Rocephin -Urine culture not obtained Hypertension, uncontrolled -home meds resumed, adjust as needed Disposition: For discharge if stress test is negative Hospitalist Physical General appearance: Present: no acute distress - EENT Eyes: Present: PERRL, EOM intact ENT: hearing intact, clear oral mucosa - Neck Neck: Present: supple - Respiratory Respiratory effort: normal Respiratory: bilateral: CTA - Cardiovascular Rhythm: regular Heart Sounds: Present: S1 & S2 - Extremities Extremities: No edema - Abdominal General gastrointestinal: soft, non-tender, normal bowel sounds - Neurologic Neurologic: CNII-XII intact Disposition: [id number]/[place]-06 HOME UNDER HOME [facility] Time spent for discharge: 32 minutes Core Measure Documentation - Palliative Care Palliative Care/ Comfort Measures: Not Applicable - Core Measures Any of the following diagnoses?: none Exam - Constitutional Vitals: Temp Pulse Resp BP Pulse Ox 97.9 F 70 16 146/85 97 12/14/17 11:22 12/14/17 11:22 12/14/17 11:22 12/14/17 11:22 12/14/17 11:22 Plan Activity: advance as tolerated Weight Bearing Status: Weight Bear as Tolerated Diet: low fat Follow up with: PRIMARY CARE, [Primary Care Provider] - 3-5 Days Prescriptions: Temazepam [Restoril] 15 mg PO QHS PRN #10 capsule PRN Reason: Sleep Carvedilol [Coreg] 12.5 mg PO BID #30 tablet
== END 2017-12-14 18:49 | disposition home health service (06) | DRG 690 ==
LOC: ED 15:46 → 4A 22:08
PROVIDERS: ADMIT Internal Medicine; ATTEND Internal Medicine
DX: N39.0 Urinary tract infection, site not specified (principal); E87.1 Hypo-osmolality and hyponatremia; K21.9 Gastro-esophageal reflux disease without esophagitis; I10 Essential (primary) hypertension; G43.909 Migraine, unspecified, not intractable, without status migrainosus; M79.1 Myalgia; E87.6 Hypokalemia; Z79.82 Long term (current) use of aspirin; Z82.49 Family history of ischemic heart disease and other diseases of the circulatory system; Z91.14 Patient's other noncompliance with medication regimen
CPT/HCPCS: 36415; 70450; 71046; 78452; 80048; 80053; 81001; 82550; 82570; 83735; 83880; 83930; 83935; 84100; 84300; 84484; 84550; 85025; 93005; 93010; 93017; 96361; 96374; 96375; A9502; G8978-GP; G8979-GP; G8980-GP; J0360; J0696; J1650; J2270; J2405; J2785; J3246; J3480; J7030; J7050; J7070